=== PATIENT | female | born 1960 | race Caucasian/White ===

== ENCOUNTER 2023-09-23 11:14 | Outpatient (CLI) | payer OTHER, SELFPAY ==
--- NOTE | ~2023-09-23 | US_ITS ---
Thyroid ultrasound. Clinical History: Enlarged thyroid gland Findings: Real-time sonography of the thyroid gland was performed. The right lobe measures 7.1 x 3.8 x 3.0 cm. The left lobe measures 3.8 x 1.3 x 1.4 cm. The isthmus is 4 mm in AP diameter. There is a 2.2 x 1.5 x 1.7 cm hypoechoic solid nodule at the right upper pole. There is a 4.0 x 3.4 x 2.9 cm isoechoic solid nodule at the right lower pole. There is a 0.5 cm cystic nodule in the left thyroid lobe. Impression: 2.2 cm and 4.0 cm right thyroid lobe nodules, both of which are TR-4 nodules. Given size, FNA of thes e nodules is recommended to establish a histologic diagnosis for each.. Reviewed, dictated and finalized at [facility]. Impression: 2.2 cm and 4.0 cm right thyroid lobe nodules, both of which are TR-4 nodules. G iven size, FNA of these nodules is recommended to establish a histologic diagno sis for each..
== END 2023-09-23 11:15 ==
PROVIDERS: PCP Nurse Practitioner; Visit Provider Nurse Practitioner
DX: E07.9 Disorder of thyroid, unspecified (principal); E04.2 Nontoxic multinodular goiter
CPT/HCPCS: 76536

== ENCOUNTER 2023-12-23 02:12 | Day surgery (SDC) | payer OTHER, SELFPAY ==
[2023-12-05 13:56] VITALS: BMI 27.3
[2023-12-23 08:13] VITALS: BP 127/84; PULSE 68; RESP 20; TEMP 36.5; O2SAT 98
--- NOTE | 2023-12-23 08:19 | WPDANESEPPF ---
Anes - Initial Pre Proc Eval Procedure: Operation Date: 12/23/23 09:30 Proposed Procedures p Screening Colonoscopy - Kyle Liao MD Date/Time: 12/23/23 08:19 Surgeon: Kyle Liao MD Pre Op Diagnosis: Neoplasm screening Patient Data Age: 63 Gender: F Height: 1.57 m Weight: 66.2 kg Last Vital Signs Temp 36.5 C 12/23/23 08:13 Pulse 68 12/23/23 08:13 Resp 20 12/23/23 08:13 BP 127/84 12/23/23 08:13 Pulse Ox 98 12/23/23 08:13 O2 Del Method Room Air 12/23/23 08:13 Allergies Allergy/AdvReac Type Severity Reaction Status Date / Time Penicillins Allergy Rash Verified 12/23/23 08:10 Home Medications Medication Instructions Recorded Confirmed Type rosuvastatin 10 mg tablet 10 mg PO DAILY 12/05/23 12/05/23 History Patient hx anesthesia problems: none Family hx anesthesia problems: none Results Review: All pre-operative results and documents have been reviewed as part of the pre-operative evaluation. PENDING SALE TO [facility] Past Medical History Medical History (Updated 12/23/23 @ 08:20 by Wing Fatima DO) Hyperlipidemia Social History Social History (System 11/22/21 @ 12:35 by Tanisha Ozuna) Smoking status: Never smoker Alcohol intake: never Substance use: never Substance use type: does not use Living arrangements: with family Spiritual care concerns: No Anes - Eval Final PreProcedure Day of Procedure 12/23/23 08:19 Patient weight: overweight Heart: regular rate and rhythm Lungs: clear to auscultation Airway: Mallampati scale class II Neurological: alert and oriented Last oral intake: >/= 8 hours ASA classification: II Emergent: no Anesthetic plan: proceed Anesthesia type and monitoring: general GIVS and standard monitoring Results Review: All pre-operative results and documents have been reviewed as part of the pre-operative evaluation. Informed Consent: The patient's anesthetic plan and its attendant risks and benefits were discussed with the patient/family/POA. Questions were solicited and answers provided to the satisfaction of the patient/family/POA.
[2023-12-23] MEDS: LACTATED RINGERS 1,000 ML 150 ML IV CONT (08:22)
--- NOTE | 2023-12-23 08:54 | PM.HPGS ---
History of Present Illness History of Present Illness Consent: Risks, benefits, and alternatives have been discussed and questions answered. Patient agrees to proceed with procedure. Chief complaint: Neoplasm screening Narrative: Cece Brennan is a 63 year old female with colon polyp 5 years ago Review of Systems Review of Systems: All systems reviewed & are unremarkable except as noted in HPI and below PMFSH Past Medical History Medical History (Updated 12/23/23 @ 08:55 by Kyle Liao MD) Colon polyp Hyperlipidemia Social History Social History (System 11/22/21 @ 12:35 by Tanisha Ozuna) Smoking status: Never smoker Alcohol intake: never Substance use: never Substance use type: does not use Living arrangements: with family Spiritual care concerns: No Meds Home Medications and Allergies Home Medications Medication Instructions Recorded Confirmed Type rosuvastatin 10 mg tablet 10 mg PO DAILY 12/05/23 12/05/23 History Allergies Allergy/AdvReac Type Severity Reaction Status Date / Time Penicillins Allergy Rash Verified 12/23/23 08:10 Vital Signs Vital Signs - 24 hr 12/23/23 08:13 Temperature 97.7 F Pulse Rate 68 Respiratory Rate 20 Blood Pressure 127/84 Pulse Oximetry 98 Oxygen Delivery Room Air Exam Const: General: comfortable and no acute distress HENMT: Face/Nose/Sinus: Normal nares present Eyes: General: appearance normal, both eyes and all related structures Neck: Neck: no JVD Resp: Auscultation: clear to auscultation bilaterally Cardio: Rate: regular rate Rhythm: regular rhythm GI: Inspection: non-distended GI Palp: Yes Soft to palpation Skin: General skin exam: normal color Neuro: General: gait normal Speech: normal speech Extrem: General: normal to inspection Psych: Mental Status: mental status grossly normal Assessment and Plan Assessment and plan (1) Colon polyp: Code(s): K63.5 - Polyp of colon Status: Acute Assessment and Plan: colonoscopy
[2023-12-23 09:14] VITALS: BP 100/62; PULSE 66; RESP 22; O2SAT 96
[2023-12-23 09:24] VITALS: BP 112/72; PULSE 58; RESP 18; O2SAT 98
[2023-12-23 09:34] VITALS: BP 120/80; PULSE 56; RESP 16; O2SAT 99
== END 2023-12-23 09:49 | disposition home or self-care (01) ==
PROVIDERS: Referring Provider Nurse Practitioner; Visit Provider Internal Medicine Gastroenterology
PROC: 0DJD8ZZ Inspection of Lower Intestinal Tract, Via Natural or Artificial Opening Endoscopic (ICD-10-PCS; CPT 45378; principal; 2023-12-23 09:30)
DX: Z12.11 Encounter for screening for malignant neoplasm of colon (principal); K57.30 Diverticulosis of large intestine without perforation or abscess without bleeding; Z86.010 Personal history of colon polyps; E78.5 Hyperlipidemia, unspecified
CPT/HCPCS: 45378; J2001; J2704; J7120

== ENCOUNTER 2024-12-28 11:20 | Outpatient (CLI) | payer OTHER, SELFPAY ==
--- NOTE | ~2024-12-28 | MM_ITS ---
EXAMINATION: MM screening [facility] w veronica HISTORY: Screening mammogram TECHNIQUE: Craniocaudal and mediolateral oblique 3-D tomosynthesis images were obtained and synthetic 2-D images were generated. CAD analysis was submitted and interpreted. COMPARISON: No prior mammogram is available for comparison at this institution. BREAST PARENCHYMAL COMPOSITION:Dense: The breasts are heterogeneously dense, which may obscure small masses. FINDINGS: No suspicious mass, calcification, or architectural distortion are identified in either ayde ast to suggest malignancy. There has been no suspicious interval change. IMPRESSION: No mammographic evidence of malignancy. Recommend routine screening mammography in one year. BI-RADS Category 1: Negative Reviewed, dictated and finalized at location .
== END 2024-12-28 11:21 | disposition home or self-care (01) ==
LOC: MICIMG 11:21
PROVIDERS: Visit Provider Obstetrics & Gynecology Gynecology
DX: Z12.31 Encounter for screening mammogram for malignant neoplasm of breast (principal)
CPT/HCPCS: 77063; 77067